=== PATIENT | male | born 1955 | race African-American/Black ===

== ENCOUNTER → 2016-07-19 | Outpatient (CLI) | payer OTHER ==
[2015-11-06 13:04] VITALS: BP 137/78
[~2016-07-19] MED LIST: ACET325T9 PO; AMLO10TA2 PO; CETI10TA22 PO; HYDR-965 PO; HYDR12.58 PO; IBUP-1027 PO
--- NOTE | 2016-07-19 11:54 | KCIC ---
MR of the left knee HISTORY: Left knee pain. Injury 2016. Arthroscopic surgery since the prior MRI. COMPARISON: Comparison: October 07, 2015. FINDINGS: Blunting of the free margin of the medial meniscus, presumably due to interval meniscectomy since the prior study. The medial meniscal remnant again demonstrates evidence of some internal signal and deformity compatible with the patient's prior tear. The morphology appears similar to the prior exam, but it is not possible to exclude a component of recurrent tear. No evidence of a lateral meniscal tear. The anterior cruciate ligament is thin and irregular, and the distal attachment in particular is poorly seen, similar to the prior exam. Posterior cruciate ligament is intact. Medial collateral ligament is intact. Iliotibial band unremarkable. Fibular collateral ligament, biceps femoris tendon and popliteus tendon are intact. Extensor mechanism is intact. Small ossicle again identified just posterior to the distal patellar tendon Fluid collection, cyst or bursitis alongside the medial tibial plateau is redemonstrated and appears similar to the prior exam. Mild edema/scarring within the infrapatellar fat. Mild chondromalacia of the patella. Slightly more apparent than on the prior study that may just be due to technique difference. Severe cartilage loss at the medial joint compartment is again identified and appears similar. Chondromalacia at the lateral compartment, particularly the posterior lateral tibial plateau appears similar. No evidence of aggressive bone destruction or acute fracture. No significant Pierre's cyst. IMPRESSION: 1. Changes of the medial meniscectomy. Deformity and signal at the medial meniscal remnant, at least indicative of the original tear, but it's not possible to exclude a component of recurrent tearing. 2. Primary osteoarthritis is again demonstrated. 3. Thinned and irregular anterior cruciate ligament, with a poorly defined distal insertion. The appearance is similar to the prior study, cannot exclude chronic anterior cruciate ligament tear. Electronically signed by: Jaiden Curry MD (07/19/2016 11:51 AM)
== END | disposition home or self-care (01) ==
LOC: KCIC MRI 07:57
PROVIDERS: ATTEND General Practice
DX: M22.42 Chondromalacia patellae, left knee (principal); M17.12 Unilateral primary osteoarthritis, left knee
CPT/HCPCS: 73721

== ENCOUNTER → 2016-10-25 | Outpatient (CLI) | payer BC ==
[~2016-10-25] VITALS: Ht 190.5 cm; Wt 129.3 kg
[2016-10-25] VITALS (10 sets, daily range): BP systolic 119–147; BP diastolic 77–90
[~2016-10-25] MED LIST changes: +ASPI-630 PO; +ASPIRIN ENTERIC COATED 81 MG TABLET.DR. PO SCH; +HEPARIN for IV BOLUS 10,000 UNIT/10 ML VIAL. IART ONE; +HEPARIN for IV BOLUS 10,000 UNIT/10 ML VIAL. ONE; +IOHEXOL 300 MG/ML 100ML VIAL. IART ONE; +IOHEXOL 300 MG/ML 100ML VIAL. ONE; +ISOS30TA4 PO; +ISOSORBIDE MONONITRATE ER 30 MG TAB.ER.24H PO SCH; +IV 1/2 NORMAL SALINE 1,000 ML IV SCH; +LIDOCAINE 2% 20 ML VIAL. IJ ONE; +LIDOCAINE 2% 20 ML VIAL. ONE; +MIDAZOLAM HCL/PF 2 MG/2 ML VIAL. IV ONE; +MIDAZOLAM HCL/PF 2 MG/2 ML VIAL. ONE; +NITROGLYCERIN 200 MCG/2 ML SYRINGE FOR CATH/VASC LAB. IART ONE; +NITROGLYCERIN 200 MCG/2 ML SYRINGE FOR CATH/VASC LAB. ONE; +VERAPAMIL 5 MG/2 ML VIAL. IART ONE; +VERAPAMIL 5 MG/2 ML VIAL. ONE; +fentaNYL PF VIAL 100 MCG/2 ML VIAL IV ONE; +fentaNYL PF VIAL 100 MCG/2 ML VIAL ONE
[2016-10-25 08:26] LABS: HEMATOCRIT 45.2 % (39.0-53.0); RED BLOOD COUNT 5.29 x10^6/uL (4.30-5.70); RED CELL DISTRIBUTION WIDTH 14.8 % (11.5-14.5)
[2016-10-25 08:38] LABS: INR 1.2 (0.8-1.1)
[2016-10-25 08:54] LABS: CALCIUM 9.1 mg/dL (8.5-10.1); CREATININE 1.2 mg/dL (0.7-1.3); GFR 74.5; POTASSIUM 4.2 mmol/L (3.5-5.1)
--- NOTE | 2016-10-25 09:49 | PDOC ---
MODERATE SEDATION ASSESSMENT RISKS/ALTERNATIVES Risks/Alternatives Risks and alternatives of this type of sedation and procedure discussed with: RISK/ALTERNATIVES: Patient H & P ON CHART H & P H & P on chart and reviewed for co-morbid conditions and appropriate labs. H&P ON CHART: Yes STATUS PREG STATUS ASSESSED: N/A MEDS/ALLERGIES REVIEWED Meds/Allergies Reviewed Medications and Allergies including time and route of recently administered narcotics and sedatives. MEDS/ALLERGIES REVIEWED: Yes ASA RATING ASA RATING: II AIRWAY ASSESSMENT Airway Assessment Airway patency, oral function limitations, presence of caps, crowns, dentures, partials, and ability to extend neck assessed. AIRWAY ASSESSMENT: Yes MALLAMPATI SCORE MALLAMPATI SCORE: II PRE-SEDATION ASSESSMENT PRE-SEDATION ASSESSMENT: Yes ANTIONETTE HASSAN MD Oct 25, 2016 09:49
--- NOTE | 2016-10-25 12:39 | CARD ---
APPROVED REPORT Procedure(s) performed: Left heart catheterization, selective coronary angiography and left ventricul ography via right transradial approach Moderate sedation: 20 minutes INDICATION The indication(s) include : unstable angina . PROCEDURE NARRATIVE After explaining the risks, benefits and alternative options, informed consent was obtained from ru ent. Patient was brought to the cardiac [facility] and right wrist was prepped and draped in the usual fashion after confirming a positive modified Nirmal's test. Arterial access was obtained in the [facility] radial artery and a 6 Georgian sheath was inserted. 6 Georgian Piero catheter was used to perform darwin ective angiography of the left and right coronary arteries. 6 Georgian pigtail catheter was used to pe rform left ventriculography. Patient tolerated the procedure well. Hemostasis was achieved using TR band. There were no immediate complications. The following findings were noted. FINDINGS 1. Hemodynamics: Left ventricular end-diastolic pressure of 14 mmHg. No pullback gradient across th e aortic valve. 2. Left ventriculography: Normal left ventricle systolic function with ejection fraction estimated at 60%. No significant mitral regurgitation seen. 3. Coronary angiography: a. The left main coronary artery arose from the left sinus of Valsalva, gave rise to the left anteri or descending and left circumflex arteries and did not show any significant stenosis. b. The left anterior descending artery showed 90% stenosis involving the very distal segment was the apical wall. No other stenosis was noted in this vessel. c. The left circumflex artery showed widely patent stent in the midsegment. d. The right coronary artery was a large and dominant vessel arising from the right sinus of Valsalv a that showed stented proximal and mid segments. There is 40% in-stent restenosis noted in the proxim al segment. Conclusion 1. 90% stenosis involving the very distal segment of the left anterior descending artery towards the apical wall. 40% in-stent restenosis involving the right coronary artery. The previously placed sten t in the left circumflex artery was widely patent. 2. Normal left ventricle systolic function with ejection fraction estimated at 60%. Recommendations Medical Therapy
== END | disposition home or self-care (01) ==
LOC: CCL 07:53
PROVIDERS: ATTEND Internal Medicine Cardiovascular Disease
DX: I25.10 Atherosclerotic heart disease of native coronary artery without angina pectoris (principal); I20.0 Unstable angina; I10 Essential (primary) hypertension; K21.9 Gastro-esophageal reflux disease without esophagitis; F17.200 Nicotine dependence, unspecified, uncomplicated; Z87.39 Personal history of other diseases of the musculoskeletal system and connective tissue; Z72.89 Other problems related to lifestyle; Z79.01 Long term (current) use of anticoagulants
CPT/HCPCS: 36415; 80048; 85027; 85610; 85730; 93458; 99152; C1769; C1892; J1644; J2250; J3010; J3490; Q9967; J2001